=== PATIENT | female | born 1980 | race Caucasian/White ===

== ENCOUNTER 2017-06-06 14:04 | Emergency (ER) | payer OTHER ==
[~2017-06-06] VITALS: Ht 157.5 cm; Wt 82.1 kg
[~2017-06-06 14:04] MED LIST: DAILY MULTIPLE1 EACH PO; ENDOCET 5-3251 EACH PO; MAALOX ADVANCE355 ML PO; MEDROL DOSEPAK4 MG PO; MOTRIN800 MG PO; Motrin PO; NOHOMEMEDS; PEPCID20 MG PO; PERCOCET 5/31 TABLET PO; PROAIR RESPICL90 MCG IH; PROVENTIL,2.5 MG/3 M IH; Percocet 5/325,Endoc PO
[2017-06-06 16:53] LABS: HEMATOCRIT 41.8 % (36.0-46.0); MCH 31.2 PG (29.0-34.0); MCV 91.9 FL (83-99); MEAN PLAT.VOLUME 10.7 uM^3 (9.5-12.4); PLATELET COUNT 185 K/uL (156-360); RBC DIS.WIDTH-SD 40.9 % (39-53); RED BLOOD COUNT 4.55 M/uL (3.80-5.20); WHITE BLOOD COUNT 5.6 K/uL (4.1-10.2)
[2017-06-06 17:01] LABS: CHLORIDE 104 mEq/L (99-109); POTASSIUM 4.1 mEq/L (3.7-5.4); SODIUM 135 mEq/L (136-147)
[2017-06-06 17:03] LABS: GLUCOSE 90 mg/dL (70-99)
[2017-06-06 17:05] LABS: ANION GAP 8 MEQ/L (2-14)
[2017-06-06 17:07] LABS: GFR ESTIMATE (CALCULATED) > 59 mL/min/
[2017-06-06 17:08] LABS: UREA NITROGEN (BUN) 11 mg/dL (9-23)
[2017-06-06 17:15] LABS: QUANTITATIVE HCG < 4.0 MIU/ML
[2017-06-06 17:25] LABS: ADD MIUA? YES; BILIRUBIN NEGATIVE; BLOOD NEGATIVE; COLOR YELLOW ((YELLOW)); GLUCOSE (STRIP) NEGATIVE; KETONES NEGATIVE; LEUKOCYTES MODERATE; NITRITE NEGATIVE; PROTEIN (STRIP) 30; SPECIFIC GRAVITY 1.011 (1.000-1.030); UROBILINOGEN 0.2 MG/DL (0.2-1.0)
[2017-06-06 17:32] LABS: TROP-I INTERPRETATION NEGATIVE; TROPONIN-I < 0.01 ng/mL (0.0-0.30)
[2017-06-06 17:45] LABS: BACTERIA RARE /HPF; EPITHELIAL CELLS 1+ /HPF; MUCUS TRACE /LPF; RED BLOOD CELLS 0-5 /HPF (0-5); UCUL ADDED? NO
[2017-06-06] MEDS ORDERED: PERCOCET 5/31 TABLET PO (19:18)
[2017-06-06] MEDS ORDERED: REGLAN10 MG PO (19:18)
[2017-06-06 19:19] LABS: INTERNAL CONTROL VALID? YES; MONOSPOT (MONONUCLEOSIS SEROL) NEGATIVE
[2017-06-06 19:49] VITALS: BP 105/66
[2017-06-07 09:45] LABS: LYME DISEASE SEROLOGY SCREEN NEGATIVE (NEGATIVE)
== END 2017-06-06 19:52 | disposition home or self-care (01) ==
LOC: EME 14:04
PROVIDERS: Physician Assistant
DX: R51 Headache (principal); M79.1 Myalgia; K21.9 Gastro-esophageal reflux disease without esophagitis; F17.200 Nicotine dependence, unspecified, uncomplicated; Z87.440 Personal history of urinary (tract) infections; Z98.890 Other specified postprocedural states
CPT/HCPCS: 70450; 71020; 80048; 81003; 84484; 84702; 85027; 86308; 86618; 99281; 99284; J1885; J3010